=== PATIENT | female | born 1930 | race Caucasian/White ===

== ENCOUNTER → 2017-04-04 | Outpatient (CLI) | payer MEDICARE ==
[~2017-04-04] MED LIST: AMLO5TAB PO; COUMADIN 2.5MG2.5 MG PO; COUMADIN 5MG TAB5 MG PO; COUMADIN5 MG PO; DIGOXIN0.125 MG PO; HYDROCODONE-APA1 TA1 PO; IPRATROPIUM BROM3 M1 IN; LANOXIN 0.120.125 MG PO; LEVOFLOXACIN 5500 M1 PO; LEVOTHYROXINE0.1 M1 PO; LEVOTHYROXINE0.15 MG PO; LISINOPRIL 10MG10 MG PO; LISINOPRIL10 MG PO; LOPRESSOR 25MG.25 MG PO; LOVENOX 3030 MG/0.3 SC; LOVENOX SY40 MG/0.4 IJ; METOCLOPRA10 MG/2 ML IVP; METOPROLOL25 MG PO; METRONIDAZOLE500 MG PO; MORPHINE 2MG.2 MG/ML IV; ONDANSETRON4 MG/2 ML IV; OXAZEPAM 10MG C10 M1 PO; OXAZEPAM10 MG PO; SENNA8.6 MG PO; SERTRALINE HYDR25 MG PO; TYLENOL ES500 M1 PO; VITAMIN B12500 MC1 PO; WARFARIN SODIU2.5 MG PO; ZOLOFT 50MG TAB50 MG PO
== END ==
LOC: LAB 15:25
DX: I48.2 Chronic atrial fibrillation (principal)